=== PATIENT | male | born 1965 | race Hispanic/Latino ===

== ENCOUNTER 2020-01-19 08:47 | Outpatient (CLI) | payer OTHER ==
--- NOTE | 2020-01-19 10:09 | XRay Report ---
XR hip 2-3V LT INDICATION / CLINICAL INFORMATION: HIP PROBLEMS,GOUT,HBP,NERVE PROBLEMS,OBESITY,POOR EYESIGHT. COMPARISON: None available. FINDINGS: Postoperative changes from total left hip arthroplasty. No abnormal lucency surrounds hardware. Hardw are is intact. Ossific loose body along the left hip joint. Moderate right hip osteoarthritis with bu lging at the femoral head neck junction, can be seen in cam femoroacetabular impingement. No destruc tive osseous lesion or suspicious periosteal reaction. Impression: 1. Left hip total arthroplasty with intact hardware and no complication. Signer Name: Orion Forman MD Signed: 01/19/2020 10:04 AM Workstation Name: [id number]
== END 2020-01-19 08:48 | disposition home or self-care (01) ==
LOC: XRAY 08:47
PROVIDERS: ATTEND Internal Medicine
DX: M25.852 Other specified joint disorders, left hip (principal); M16.11 Unilateral primary osteoarthritis, right hip; M10.9 Gout, unspecified; E11.21 Type 2 diabetes mellitus with diabetic nephropathy; E66.09 Other obesity due to excess calories; I10 Essential (primary) hypertension; G98.8 Other disorders of nervous system; Z96.642 Presence of left artificial hip joint